=== PATIENT | female | born 1940 | race Two or more races ===

== ENCOUNTER 2016-07-27 08:48 | Day surgery (SDC) | payer MEDICARE, OTHER ==
[2016-07-27] MEDS ORDERED: MIDAZOLAM HCL 2 MG/2ML VIAL ONE (10:45)
[2016-07-27] MEDS ORDERED: FENTANYL PF 100MCG/2ML AMPUL ONE (10:46)
[2016-07-27] MEDS ORDERED: IV LR 1000 ML 1,000 ML ONE (13:48)
[2016-07-27] MEDS ORDERED: IV SET PRIMARY 1 EA INFUS.SET MC ONE (13:48)
[2016-07-27] MEDS ORDERED: NEEDLELESS EST SET LARGE BORE 1 EA INFUS.SET MC ONE (13:48)
[2016-07-27] MEDS ORDERED: ACETAMINOPHEN 325 MG TABLET ONE ×2 (13:49→13:50)
== END 2016-07-27 14:10 | disposition home or self-care (01) ==
LOC: DS 08:48
PROVIDERS: ATTEND Specialist
DX: M23.200 Derangement of unspecified lateral meniscus due to old tear or injury, right knee (principal); M94.261 Chondromalacia, right knee; L90.5 Scar conditions and fibrosis of skin
CPT/HCPCS: 29881; 29888; 82962; J0360; J1885; J2250; J2405; J2704; J3010; J3490; J7120; 88304-TC; 88305-TC; 88311-TC; A4217; A6402; L1830